=== PATIENT | female | born 1985 | race Hispanic/Latino ===

== ENCOUNTER → 2017-02-22 | Outpatient (CLI) | payer OTHER ==
[~2017-02-22] MED LIST: BUPR300T43 PO; DIPH25CA79 PO; DULO60CA7 PO; FAMO-119 PO; FLEXERIL; LORA-405 PO; LRT10T PO; PRED50TA PO; VITA1CAP29 PO; ZPR80C PO
--- NOTE | 2017-02-22 18:28 | Diagnostic Imaging Report ---
INDICATION: Sciatica. Frontal, lateral and L5-S1 spot radiographs of the lumbar spine are performed. AVAILABLE COMPARISONS: None A transitional lumbar vertebra is present. Posterior vertebral body alignment is within normal limits. There is no visible spondylolysis. Mild degenerative disc disease is present at L4-5 with mild osteophyte formation anteriorly and posteriorly. Minimal anterior osteophyte formation is present at L3-4 with mild disc space narrowing. No acute fracture seen. Visualized SI joints are normal. No osteolytic or osteoblastic lesion is identified. Surgical clips are present from previous cholecystectomy. IMPRESSION: 1. Mild degenerative changes. Dictated by: Dictated on workstation # [id number]
== END ==
LOC: RAD 13:59
PROVIDERS: ATTEND Physician Assistant Medical
DX: Z01.812 Encounter for preprocedural laboratory examination (principal); M54.31 Sciatica, right side
CPT/HCPCS: 72100; 81025

== ENCOUNTER → 2017-02-23 | Outpatient (CLI) | payer OTHER ==
[2017-02-23 15:59] LABS: MEAN CORPUSCULAR HEMOGLOBIN 27.5 PG (26.0-34.0); MEAN CORPUSCULAR HGB CONC 33.4 g/dL (31.0-37.0); WHITE BLOOD COUNT 12.87 10^3uL (4.0-11.0)
[2017-02-23 16:11] LABS: ALBUMIN 4.6 g/dL (3.4-5.0); ANION GAP 19.9 MEQ/L (3-15); CALCULATED IONIZED CALCIUM 3.7 mg/dL (3.8-4.6); TOTAL PROTEIN 8.3 g/dL (6.4-8.5)
== END ==
LOC: LAB 15:44
PROVIDERS: ATTEND Internal Medicine Rheumatology
DX: M06.09 Rheumatoid arthritis without rheumatoid factor, multiple sites (principal); L40.8 Other psoriasis; M62.830 Muscle spasm of back
CPT/HCPCS: 36415; 80053; 85027; 85652; 86140

== ENCOUNTER 2017-03-07 13:54 | Emergency (ER) | payer OTHER ==
[~2017-03-07] VITALS: Ht 165.1 cm; Wt 80.0 kg
[~2017-03-07 13:54] MED LIST changes: -EPIN0.1518 IM; -PHEN15CA67 PO; -PRED20TA PO; -TRM50T PO
--- OUTSIDE RECORDS SUMMARY | 2017-03-07 13:59 | XMS REPORT | Summary of Care ---
Author Organization Unknown Address Unknown Phone Unavailable Care Team Providers Care Manager Privacy Name Role Phone Sandra Jorge M.D. 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 Started ActivePramipexole Dihydrochloride 0.5 MG Oral Tablet Refills: 0 Sandra Jorge M.D. Started ActiveBuPROPion HCl ER (XL) 300 MG Oral Tablet Extended Release 24 Hour Refills: 0 Sandra Jorge M.D. Started ActiveTopamax 100 MG Oral Tablet Refills: 0 Sandra Jorge M.D. Started ActiveEpiPen 2-Jason 0.3 MG/0.3ML Injection Solution Auto-injector To be used for allergic reaction Quantity: 1 Refills: 1 Sandra Jorge M.D. Started Active Allergies and Adverse Reactions Name Dates Details No Known Drug Allergies Status: Active Procedures Procedure Dates Details Procedures not documented Immunization Name Dates Details Immunizations not documented Social History Smoking StatusUnknown if ever smoked Vital Signs Date Test Result Details No Known Vitals to report Results Date Description Value Details Results not documented Plan of Care Planned Observations Name Dates Details Planned Goals not documented Goal Planned Encounters Appointment; Provider: Russ Wilhelm On 18-Jul-2015 14:00 Instructions Instructions not documented Encounters Appointment; Sandra Jorge Encounter Diagnosis: Problem not documented On 11-Oct-2014 15:30 Appointment; Sandra Jorge Encounter Diagnosis: Problem not documented On 09:30
[2017-03-07] MEDS ORDERED: FAMOTIDINE IV 20 MG in SODIUM CHLORIDE VIAL (PF) 10 ML IV ONE (14:10)
[2017-03-07] MEDS ORDERED: methylPREDNISolone 125 MG (Solu-MEDROL) VIAL IV ONE (14:10)
[2017-03-07] MEDS ORDERED: EPIN0.1518 IM (14:17)
[2017-03-07] MEDS ORDERED: PHEN15CA67 PO (14:17)
[2017-03-07] MEDS ORDERED: TRM50T PO (14:17)
--- NOTE | 2017-03-07 14:17 | NUR ---
states uses an arthritis med she does not know the name of
[2017-03-07 14:29] LABS: BASOPHILS % (AUTO) 0 % (0-2); EOSINOPHILS # (AUTO) 0.1 10^3uL; EOSINOPHILS % (AUTO) 0 % (0-4); LYMPHOCYTES # (AUTO) 4.8 X10^3; MEAN CORPUSCULAR HEMOGLOBIN 27.5 PG (26.0-34.0); MEAN CORPUSCULAR HGB CONC 33.9 g/dL (31.0-37.0); MEAN CORPUSCULAR VOLUME 81 FL (80-100); MEAN PLATELET VOLUME 9.8 FL (6.0-9.5); MONOCYTES # (AUTO) 0.7 X10^3; MONOCYTES % (AUTO) 5 % (3-11); NEUTROPHILS # (AUTO) 9.8 X10^3; NEUTROPHILS % (AUTO) 64 % (51-67); PLATELET COUNT 324 10^3uL (150-450)
[2017-03-07 15:05] LABS: ALBUMIN 4.6 g/dL (3.4-5.0); ANION GAP 21.4 MEQ/L (3-15); CALCULATED IONIZED CALCIUM 3.7 mg/dL (3.8-4.6); TOTAL PROTEIN 8.2 g/dL (6.4-8.5)
[2017-03-07] MEDS ORDERED: PRED20TA PO (15:26)
[2017-03-07 15:38] VITALS: BP 144/82
== END 2017-03-07 15:38 | disposition home or self-care (01) ==
LOC: EDUNIT# 13:54 → ED 13:55
DX: T78.1XXA Other adverse food reactions, not elsewhere classified, initial encounter (principal); R06.00 Dyspnea, unspecified; X58.XXXA Exposure to other specified factors, initial encounter
CPT/HCPCS: 36415; 80053; 85025; 96374; 96375; 99283; J2930; J3490; J7050

== ENCOUNTER → 2017-03-07 | Outpatient (CLI) | payer OTHER ==
[~2017-03-07] MED LIST changes: +EPIN0.1518 IM; +PHEN15CA67 PO; +PRED20TA PO; +TRM50T PO
== END ==
LOC: EMS 13:45
PROVIDERS: ATTEND Family Medicine
DX: R06.02 Shortness of breath (principal); R42 Dizziness and giddiness; T78.1XXA Other adverse food reactions, not elsewhere classified, initial encounter